=== PATIENT | female | born 1980 | race Caucasian/White ===

== ENCOUNTER 2023-01-12 10:18 | Outpatient (CLI) | payer OTHER, SELFPAY ==
--- NOTE | ~2023-01-12 | MM_ITS ---
EXAMINATION: MM stereotactic bx LT, MM post biopsy diagnostic LT, MM stereotactic specimen LT, Specim en Radiograph, Tissue Marker Clip Placement, Unilateral Mammogram DATE: 01/12/2023 13:06 (accession [id number]), 01/12/2023 13:07 (accession [id number]), 01/12 13:06 (accession [id number]) INDICATION: Abnormal mammogram: Indeterminate grouped microcalcifications in the posterior upper oute r left breast. TECHNIQUE AND FINDINGS: The risks and potential benefits of the procedure were discussed with the patient and written informe d consent was obtained. Timeout procedure was performed. The patient was placed in the prone position on the dedicated stereotactic table with the left breast in craniocaudal compression, and the area o f interest was localized and targeted utilizing digital imaging with stereotaxis. After sterile preparation of the skin, 1% lidocaine was utilized for local anesthesia at the skin pun cture site and 1% lidocaine with epinephrine was utilized for deeper local anesthesia/is about the bi opsy site. A 9G IActionable vacuum assisted biopsy needle was advanced to the level of the calcification o f interest from a cephalad approach utilizing stereotactic guidance and a total of 12 tissue core bio psies were obtained. A specimen radiograph demonstrates that the calcifications of interest are included within the tissue cores. A tissue marker clip was then placed at the biopsy site. A digital mammographic exposure co nfirmed the successful deployment of the biopsy marker. The needle was removed and hemostasis was ac hieved. A sterile bandage was applied. The patient tolerated the procedure well and there is no clementine dence of significant immediate complication. The patient was given verbal as well as written postpro cedural instructions prior to discharge from the department. Tissue cores were submitted to surgical pathology for histologic analysis. A 2-view right unilateral digital mammogram was obtained post procedure, demonstrating the tissue mar ker clip in expected position and partially complete removal of the microcalcifications of concern in the posterior upper outer left breast. IMPRESSION: 1. Successful stereotactic biopsy of posterior upper outer quadrant left breast microcalcifications , followed by tissue marker clip placement. Please refer to pathology report for histologic analysis . Reviewed, dictated and finalized at [facility]. Reviewed, dictated and finalized at location [facility]. IMPRESSION: 1. Successful stereotactic biopsy of posterior upper outer quadrant left april st microcalcifications, followed by tissue marker clip placement. Please refer to pathology report for histologic analysis. IMPRESSION: 1. Successful stereotactic biopsy of posterior upper outer quadrant left april st microcalcifications, followed by tissue marker clip placement. Please refer to pathology report for histologic analysis.
== END 2023-01-12 10:19 | disposition home or self-care (01) ==
PROVIDERS: PCP Emergency Medicine; Visit Provider Surgery
DX: R92.0 Mammographic microcalcification found on diagnostic imaging of breast (principal); N60.12 Diffuse cystic mastopathy of left breast
CPT/HCPCS: 19081; 77065; 88305; A4648

== ENCOUNTER 2023-07-08 20:06 | Emergency (ER) | payer OTHER, SELFPAY ==
--- NOTE | ~2023-07-08 | XR_ITS ---
XR foot LT min 3V 07/08/2023 20:50 INDICATION: Left foot pain after trauma PROCEDURE: 3 views left foot COMPARISON: 12/12/2012 FINDINGS: Fracture, dislocation or subluxation is not identified. The soft tissues appear within norm al limits. No foreign bodies are identified. IMPRESSION: 1: NO ACUTE BONE OR JOINT ABNORMALITY IDENTIFIED. Reviewed, dictated and finalized at location [facility]. ATOR
[2023-07-08 20:13] VITALS: BP 127/84; PULSE 90; RESP 14; TEMP 37.1; O2SAT 99
[2023-07-08 23:41] VITALS: BP 135/93; PULSE 80; RESP 16; O2SAT 100
--- NOTE | 2023-07-09 00:08 | ED.LOWEXIN ---
HPI - Extremity Injury (Lower) General Chief Complaint: Extremity Injury, Lower Stated Complaint: foot pain Time Seen by Provider: 07/08/23 23:39 Source: patient Mode of arrival: ambulatory Limitations: no limitations History of Present Illness HPI Narrative: This is a 43-year-old female that presents to the emergency department after an injury today with left foot pain. Reports dropping a slab of granite on her foot. Reports bruising and pain to the area. Denies decreased range of motion or numbness. Related Data Home Medications Medication Instructions Recorded Confirmed golimumab 50 mg/0.5 mL 50 mg subcut MONTHLY 01/24/23 subcutaneous syringe (Simponi) Allergies Allergy/AdvReac Type Severity Reaction Status Date / Time sulfasalazine Allergy Unknown Other Verified 01/24/23 09:14 Review of Systems Review of Systems: CONSTITUTIONAL: Denies fever MUSCULOSKELETAL: Reports joint pain, and myalgia. NEUROLOGIC: Denies numbness All systems reviewed & are unremarkable except as noted in HPI and below PMFSH Past Medical History Medical History (Updated 07/09/23 @ 00:09 by Rand Stearns PA-C) Rheumatoid arthritis Surgical History Surgical History (Updated 01/24/23 @ 09:14 by Di Turner) S/P breast biopsy stereotactic bx left 01/12/23 Family History Family History Father Patient's father is , Onset Age: 63 Social History Social History Smoking status: Never smoker Alcohol intake: never Exam Narrative: GENERAL: Well-appearing, well-nourished, and in no acute distress. HEAD: Normocephalic, atraumatic. EYES: EOMI. EXTREMITIES: Normal range of motion. Mild edema and bruising to the left foot dorsal surface. No obvious deformity. Normal DP pulse. Normal sensation SKIN: Warm, dry, no rash. NEURO: No focal deficits. Alert and oriented x3. PSYCH: Normal mood and affect Course Course Emergency Course: patient updated on workup and agrees with plan of care Vital Signs Vital signs: Vital Signs Temperature 98.8 F 07/08/23 20:13 Pulse Rate 90 07/08/23 20:13 Respiratory Rate 14 07/08/23 20:13 Blood Pressure 127/84 07/08/23 20:13 Pulse Oximetry 99 07/08/23 20:13 Oxygen Delivery Room Air 07/08/23 20:13 Temperature 98.8 F 07/08/23 20:13 Pulse Rate 80 07/08/23 23:41 Respiratory Rate 16 07/08/23 23:41 Blood Pressure 135/93 H 07/08/23 23:41 Pulse Oximetry 100 07/08/23 23:41 Oxygen Delivery Room Air 07/08/23 20:13 MDM - Extremity Injury (Lower) MDM Narrative Medical decision making narrative: Patient presents to the emergency department after an injury today with left foot pain. Reports strep being a slab of granite on her foot. Patient is neurovascularly intact. Left foot x-ray without acute osseous abnormalities. Patient updated on her workup. Offered a postop shoe and crutches. She declines at this time. Instructed to rest, ice and take cyth-fxv-qvydkon pain medication as needed. She is to follow up with primary provider. She was given warnings to return to the ER Differential Diagnosis Differential diagnosis: Likely other (foot fracture, foot contusion) Imaging Data Radiologist's impression: ITS Impressions Foot X-Ray 07/08/23 20:55 IMPRESSION: 1: NO ACUTE BONE OR JOINT ABNORMALITY IDENTIFIED. Critical Care Time Critical Care Time Critical Care Time: No Discharge Plan Discharge Clinical Impression: Contusion of foot, left Qualifiers: Encounter type: initial encounter Qualified Code(s): S90.32XA - Contusion of left foot, initial encounter Patient Disposition: Home, Self-Care Condition: Stable Instructions: Contusion in Adults (ED) Additional Instructions: Return to the ER if you experience fever, redness and swelling of your extremity, numbness or any
== END 2023-07-09 00:16 | disposition home or self-care (01) ==
PROVIDERS: Emergency Provider Physician Assistant
DX: S90.32XA Contusion of left foot, initial encounter (principal); W20.8XXA Other cause of strike by thrown, projected or falling object, initial encounter
CPT/HCPCS: 73630; 99283

== ENCOUNTER 2024-08-13 09:54 | Outpatient (CLI) | payer OTHER, SELFPAY ==
--- NOTE | ~2024-08-13 | MM_ITS ---
EXAMINATION: MM screening [facility] BI w florin HISTORY: Screening TECHNIQUE: Craniocaudal and mediolateral oblique 3-D tomosynthesis images were obtained and synthetic 2-D images were generated. CAD analysis was submitted and interpreted. COMPARISON: Comparison to multiple prior studies sequentially, with oldest reviewed study dated 08/27. BREAST PARENCHYMAL COMPOSITION: Not dense: There are scattered areas of fibroglandular density. FINDINGS: Interval resection of left breast calcifications with residual tissue marker at this locati on in the upper outer quadrant of the left breast. There is no evidence of suspicious mass, calcifica tion, or architectural distortion to suggest malignancy in either breast. There has been no suspiciou s interval change. IMPRESSION: 1. No mammographic evidence of malignancy. 2. Recommend routine screening mammography in one year. BI-RADS Category 2: Benign finding(s). Reviewed, dictated and finalized at location A. GE MECHANIC
--- OUTSIDE RECORDS SUMMARY | 2024-08-13 10:38 | XMS_ITS | Referral Summary ---
Author Organization [facility] [address] Address [address] [place] [id number] Care Team Providers Care Field Handyman Name Role Phone Hilary Smith MD Primary Care Provider Bailey Kay MD Unavailable [phone] Nghia Lucas MD Unavailable [phone] Allergies Active Allergy Reactions Criticality Noted Date Comments Sulfa (Sulfonamide Antibiotics) Hives,Rash Medium 05/10/2017 Sulfasalazine Hives,Rash Medium 01/03/2022 Tolerate most nsaids Medications nabumetone (RELAFEN) 500 mg tablet Take by mouth 2 (two) times a day as needed 07/08/20 21 Active ondansetron ODT (ZOFRAN-ODT) 4 mg disintegrating tablet Take 1 tablet (4 mg total) by mouth every 8 (eight) hours as needed for nausea or vomiting 20 tablet 01/03/20 23 Active Additional Information Patient not taking.Reported on 07/12/2023 valACYclovir (VALTREX) 1 gram tablet Take 2 tabs (2000 mg) 2 times a days for total of 1 day. Take at onset of cold sore 4 tablet 5 05/19/20 23 Active Additional Information Patient not taking.Reported on 07/12/2023 Active Problems Problem Noted Date Diagnosed Date Pure hypercholesterolemia 12/12/2023 Overview (12/12/2023): Mild on prior labs. ASCVD risk is not elevated. Continue working on diet and lifestyle Microcalcifications of the breast 11/22/2022 Assessment & Plan (12/12/2023 1:47 PM CDT): Patient had breast biopsy on this last year after the failed biopsy attempt at [facility]. She reports it came back benign. She is due for her annual diagnostic mammogram. We will provide order that she can take to [facility] as she wishes to continue any additional screening through them as she was not happy with the staff at [facility] who attempted the 1st biopsy Abnormal mammogram 11/22/2022 Seronegative rheumatoid arthritis ([facility]/HCC) 12/16 Assessment & Plan (12/12/2023 1:46 PM CDT): Chronic. Patient reports this is in remission. She will continue working with Rheumatology. We will check inflammatory markers with our labs and routine rheumatology. Continue p.r.n. nonsteroidal anti-inflammatory Routine physical examination 01/03/2022 Immunizations Name Administration Dates Next Due Influenza, Quadrivalent, Spl it, Intramuscular 04/14/2016 Influenza, Quadrivalent, Spl it, Preservative Free, Intramuscular 04/08/2023,04/28/2022,05/11/2020,06/09,04/05/2018,04/20/2017 Influenza, Trivalent, IM (MDV) 05/22/2015,2012 Influenza, Unspecified 07/17/2023(Deferr ed: Patient Refused),07/17/2022(Deferred: Patient Refused) MMR 09/23/2019 Tdap 09/23/2019 Social History Tobacco Use Types Packs/Day Years Used Date Smoking Tobacco: Never Smokeless Tobacco: Never AUDIT-C Answer Date Recorded Q1: How often do you have a drink containing alc ohol? 2-4 times a month 01/03/2022 Q2: How many drinks containi ng alcohol do you have on a typical day when you are drinking? 1 or 2 01/03/2022 Q3: How often do you have si x or more drinks on one occasion? Never 01/03/2022 PHQ-2 Answer Date Recorded PHQ-2 Total Score (If total score is 3 or more points, staff should administer the PHQ-9) 0 12/12/2023 Personal Safety Answer Date Recorded Getting School Help Needed Not on file 06/28 Comments No Sex and Gender Information Value Date Recorded Sex Assigned at Not on file Legal Sex Female 4:55 PM CRATE TIER Gender Identity Female 07/23/2021 12:25 PM CRATE TIER Sexual Orientation Straight 07/23/2021 12 :25 PM CRATE TIER Last Filed Vital Signs Vital Sign Reading Time Taken Comments Blood Pressure 125/86 12/12/2023 8:24 AM CDT Pulse 81 12/12/2023 8:24 AM CDT Temperature 36.9 ??C (98.4 ??F) 01/02/2023 12:32 PM C DT Respiratory Rate 16 01/02/2023 12:32 PM CDT Oxygen Saturation 98% 01/02/2023 12:32 PM CDT Inhaled Oxygen Concentration - - Weight 76.8 kg (169 lb 6.4 oz) 12/12/2023 8:24 A M CDT Height 167 cm (5' 5.75 ) 12/12/2023 8:24 AM CDT Body Mass Index 27.55 12/12/2023 8:24 AM CDT Plan of Treatment Not on file Procedures Procedure Name Priority Date/Time Associated Diagnosis Comments HEPATITIS C ANTIBODY Routine 01/15/2024 8:51 AM CDT Seronegative rheumatoid arthritis (CMS/HCC) (HCC) SCREENING MAMMOGRAM BILATERAL W JNENIFER Schedule Routine, Read Routine (OP Routine) 08/27/2022 9:39 AM CRATE TIER Screening mammogram, encounter for from Last 3 Months or Most Recently Relevant to Health Maintenance Results * Hepatitis C antibody Blood Blood, Venous (01/15/2024 8:51 AM CDT) Hep C Ab Nonreactive Nonreactive Comment: Interpretive Data Nonreactive: Antibodies to HCV not detected. Does NOT exclude the possibility of recent exposure to HCV. Equivocal: Equivocal for HCV antibodies. Supplemental molecular testing will be automatically performed to determine infection status in accordance with current CDC screening recommendations. ?? Reactive: Positive for HCV antibodies. ??This may represent current or past HCV infection. Supplemental molecular testing will be automatically performed to determine ??current infection status in accordance with current CDC screening recommendations. Interpretive data was last revised on 2019. Blood (Blood, Venous) 01/15/2024 8:51 AM CDT 01/15/2024 4:19 PM CDT Narrative [facility] MORTON - 01/15/2024 6:58 PM CDT Fax rsults to Dr Nghia Lucas [phone] Nghia Lucas MD LAB MICROBIOLOGY - GENERAL ORDERABLES Final Result [facility] MORT[facility] [id number] Department of Laboratories [place] [phone] * (ABNORMAL) Screening Mammogram Bilateral W Jennifer (08/27/2022 9:39 AM CRATE TIER) Anatomical Region Laterality Modality Breast Bilateral Mammography 08/29/2022 7:45 AM CRATE TIER Impressions 08/29/2022 7:45 AM CRATE TIER 1. ??Indeterminate group of microcalcifications in the upper outer left breast at posterior depth. ??Further evaluation with left diagnostic mammogram is recommended. 2. ??No suspicious findings in the right breast. ??Annual screening mammography of the right breast is recommended in 12 months. BI-RADS: 0 - Additional imaging evaluation is necessary. The patient has been or will be contacted. Electronically signed by: JOSÉ LUIS Ambrocio 08/29/2022 7:45 AM CRATE TIER EXAMINATION: SCREENING MAMMOGRAM BILATERAL W JENNIFER ORDERING HEALTHCARE PROVIDER: SELF SCREENING MAMMOGRAM HISTORY: Routine screening mammography. COMPARISON: ??This is patient's baseline mammogram. TECHNIQUE: CC and MLO views of both breasts were obtained with digital technique using digital breast tomosynthesis with C view. Computer aided detection was utilized. FINDINGS: DENSITY: The breasts have scattered areas of fibroglandular density. BREASTS: There is an indeterminate group of microcalcifications in the upper outer left breast at posterior depth. ??Other scattered microcalcifications in both breasts have benign appearance. ??No other suspicious findings identified in either breast. Self Screening Mammogram IMG MAMMO PROCEDURES Fi nal Result from Last 3 Months or Most Recently Relevant to Health Maintenance Insurance [id number] [place] [id number] [place] [address] Care Teams Field Handyman Relationship Specialty Start Date End Date Hilary Smith MD PCP - General Family Practice 12/29/21 Bailey Kay MD [address] [address] Referring Physician Gynecology 01/03/22 Nghia Lucas MD [address] [place] [id number] Rheumatology 12/05/22
--- OUTSIDE RECORDS SUMMARY | 2024-08-13 10:38 | XMS_ITS | Data Portability ---
Author Organization [facility], [address] ([place]) Address [address] [address] Care Team Providers Care Long Term Care Administrator Name Role Phone CHACE VELAZQUEZ Primary Care Provider [phone] Assessment Encounter Date Assessment Date Assessment LastModified by Organization Details LastModified Time 01/04/2024 01/04/2024 IMPRESSION: 1. Seronegative RA? No active synovitis today on exam despite the patient having been off SYMPONI for over a month. 2. Osteoarthritis of the right thumb and bilateral knees. PLAN: 1. Restart nabumetone 500 mg p.o. b.i.d. with food. The indications, risks, benefits and potential side effects of this NSAID medication are reviewed with the patient today in detail. 2. We will call the patient in 1 week for an update on how she is doing. 3. Followup visit in 3 months for recheck. nv Not available 01/05/2024 10:51:09 04/22/2024 04/22/2024 IMPRESSION: 1. 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 2. Osteoarthritis. PLAN: 1. Labs today, including a CBC, CMP and acute phase reactants, as well as quantitative rheumatoid factor and CCP antibody. 2. Discontinue Orencia. 3. Retrial of Enbrel 50 mg subcutaneously once weekly dosing. 4. Discontinue nabumetone. 5. Etodolac 400 mg p.o. b.i.d. with food. 6. Followup visit in 3 months. franklyn Not available 04/22/2024 20:07:07 08/05/2024 08/05/2024 IMPRESSION: 1. Acne rosacea. 2. Seronegative RA. 3. Osteoarthritis of the knees, mild. PLAN: 1. Doxycycline 100 mg p.o. b.i.d. x10 days. 2. Continue current Enbrel and etodolac dosing. 3. We will call the patient in 10 days for an update on how she is doing with her rash. 4. Consider referral to Dermatology. 5. Followup visit in 6 months or sooner if necessary. franklyn Not available 08/05/2024 12:50:27 Plan of Treatment Reminders Order Date Submit Date Provider Last Modified By Organization Details Last Modified Time Details Appointments None recorded. Lab CBC 2023 [facility], [address] [place] [address], [id number], 10:49:30 CMP, serum or plasma 2023 [facility], [address] [place] [address], [id number], 11:09:42 ESR (erythrocyt e sedimentati on rate), blood 2023 [facility], [address] [place] [address], [id number], 11:43:20 C-reactive protein, quantitativ e, serum or plasma 2023 [facility], [address] [place] [address], [id number], 11:09:44 ccp (cyclic citrullinat ed peptide) igg, serum 2023 [facility], [address] [place] [address], [id number], 11:35:50 rf (rheumatoid factor), serum 2023 [facility], [address] [place] [address], [id number], 11:09:46 Referral None recorded. Procedures None recorded. Surgeries None recorded. Imaging None recorded. Medication Orders nabumetone 500 mg tablet 2023 024 [facility][id number], [address] [place], [address], 16:59:05 Patient TargetsNo targets recorded. Patient Instructions Encounter Date Encounter Id Patient Instructions Last Modified By Organization Details Last Modified Time 01/04/2024 [id number] patient follow u p phone call* - get update since 01/03 appt [email or web address] Not available 01/11/2024 09:04:27 Reason for Referral None Reported. Results Created Date Observation Date Name Description Value Unit Range Abnormal Flag Note LastModifiedBy Organization Detail LastModifiedTime 04/22/2004/23/2024 CBC CBC Not Available [facility] [address] [place] [address], [id number], 04/23/2024 10:49:30 04/22/20 24 04/23/2024 CBC WBC 11.7 K/uL 3.8-11 .2 high Not Available [facility] [address] [place] [address], [id number], 04/23/2024 10:49:30 04/22/20 24 04/23/2024 CBC RBC 4.87 M/uL 3.92-5 .10 Not Available [facility] [address] [place] [address], [id number], 04/23/2024 10:49:30 04/22/20 24 04/23/2024 CBC HGB 14.3 g/dL 11.8-1 5.3 Not Available [facility] [address] [place] [address], [id number], 04/23/2024 10:49:30 04/22/20 24 04/23/2024 CBC HCT 43.2 % 36.5-4 4.8 Not Available [facility] [address] [place] [address], [id number], 04/23/2024 10:49:30 04/22/2004/23/2024 CBC MCV 88.7 fL 80.0-9 9.0 Not Available [facility] [address] [place] [address], [id number], 04/23/2024 10:49:30 04/22/2004/23/2024 CBC MCH 29.4 pg 25.5-3 3.6 Not Available [facility] [address] [place] [address], [id number], 04/23/2024 10:49:30 04/22/2004/23/2024 CBC MCHC 33.1 g/dL 32.0-3 6.0 Not Available [facility] [address] [place] [address], [id number], 04/23/2024 10:49:30 04/22/2004/23/2024 CBC RDW-SD 40.3 fL 35.1 - 46.3 Not Available [facility] [address] [place] [address], [id number], 04/23/2024 10:49:30 04/22/2004/23/2024 CBC plt 331 K/uL 130-40 0 Not Available [facility] [address] [place] [address], [id number], 04/23/2024 10:49:30 04/22/2004/23/2024 CBC MPV 10.5 fL 9.3-12 .8 Not Available [facility] [address] [place] [address], [id number], 04/23/2024 10:49:30 04/22/2004/23/2024 CMP, serum or plasm a comp. met. panel Not Available [facility] [address] [place] [address], [id number], 04/23/2024 11:09:42 04/22/2004/23/2024 CMP, serum or plasm a sodium 137 mmol/ L 136-14 6 Not Available [facility] [address] [place] [address], [id number], 04/23/2024 11:09:42 04/22/2004/23/2024 CMP, serum or plasm a potassium 3.9 mmol/ L 3.5-5. 1 Not Available [facility] [address] [place] [address], [id number], 04/23/2024 11:09:42 04/22/2004/23/2024 CMP, serum or plasm a chloride 104 mmol/ L 98-110 Not Available [facility] [address] [place] [address], [id number], 04/23/2024 11:09:42 04/22/2004/23/2024 CMP, serum or plasm a CO2 28 mEq/L 20-32 Not Available [facility] [address] [place] [address], [id number], 04/23/2024 11:09:42 04/22/2004/23/2024 CMP, serum or plasm a anion gap 9 mmol/ L 10-22 low Not Available [facility] [address] [place] [address], [id number], 04/23/2024 11:09:42 04/22/2004/23/2024 CMP, serum or plasm a glucose 97 mg/dL 70-100 Not Available [facility] [address] [place] [address], [id number], 04/23/2024 11:09:42 04/22/2004/23/2024 CMP, serum or plasm a calcium 9.7 mg/dL 8.4-10 .4 Not Available [facility] [address] [place] [address], 784[address], 04/23/2024 11:09:42 04/22/2004/23/2024 CMP, serum or plasm a total protein 7.1 g/dL 6.4-8. 3 Not Available [facility] [address] [place] [address], [id number], 04/23/2024 11:09:42 04/22/2004/23/2024 CMP, serum or plasm a albumin 4.7 g/dL 3.5-5. 3 Not Available [facility] [address] [place] [address], [address], 04/23/2024 11:09:42 04/22/2004/23/2024 CMP, serum or plasm a ALP 94 U/L 44 - 127 Not Available [facility] [address] [place] [address], [id number], 04/23/2024 11:09:42 04/22/2004/23/2024 CMP, serum or plasm a AST (SGOT) 19 U/L 10-40 Not Available [facility] [address] [place] [address], [id number], 04/23/2024 11:09:42 04/22/2004/23/2024 CMP, serum or plasm a total bilirubin 0.3 mg/dL 0.2-1. 0 Not Available [facility] [address] [place] [address], [id number], 04/23/2024 11:09:42 04/22/2004/23/2024 CMP, serum or plasm a ALT (SGPT) 20 U/L 8-35 Not Available [facility] [address] [place] [address], [id number], 04/23/2024 11:09:42 04/22/2004/23/2024 CMP, serum or plasm a BUN 12 mg/dL 7-21 Not Available [facility] [address] [place] [address], [id number], 04/23/2024 11:09:42 10/07/20 24 04/23/2024 CMP, serum or plasm a creatinine 0.7 mg/dL 0.7-1. 3 Not Available [facility] [address] [place] [address], [id number], 04/23/2024 11:09:42 04/22/20 24 04/23/2024 CMP, serum or plasm a GFR(non-afri can slovenian) 97 Not Available [facility] [address] [place] [address], [id number], 04/23/2024 11:09:42 04/22/2004/23/2024 CMP, serum or plasm a GFR() 117 (FURNACE COMBUSTION TESTER EDUAR KIDNE Y DISEA SE HAS A GFR LESS THAN 60 ML/AL N/1.7 3 MM FOR A PERIO D OF THREE MONTH S OR MORE. ) Not Available [facility] [address] [place] [address], [id number], 04/23/2024 11:09:42 04/22/2004/23/2024 C-marychuy ctive prote in, quant itati ve, serum or plasm a CRP high Not Available [facility] [address] [place] [address], 6[address], 04/23/2024 11:09:44 04/22/2004/23/2024 C-marychuy ctive prote in, quant itati ve, serum or plasm a CRP 1.8 mg/dL <0.4-0 .5 high Not Available [facility] [address] [place] [address], [id number], 04/23/2024 11:09:44 04/22/2004/23/2024 rf (rheu matoi d facto r), serum rf automated Not Available [facility] [address] [place] [address], [id number], 04/23/2024 11:09:46 04/22/2004/23/2024 rf (rheu matoi d facto r), serum rf 6 IU/mL <3.5-1 4 Not Available [facility] [address] [place] [address], [id number], 04/23/2024 11:09:46 04/22/2004/23/2024 ccp (cycl ic citru llina cyn pepti de) igg, serum ccp antibody, IgG <0.54 U/mL <=4.9 Not Available [facility] [address] [place] [address], [id number], 04/23/2024 11:35:50 04/22/2004/23/2024 ESR (eryt hrocy te sedim entat ion rate) , blood sed rate 24 mm/HR 0 - 20 high Not Available [facility] [address] [place] [address], [id number], 04/23/2024 11:43:20 Result Notes None recorded. Problems Name Problem SNOMED Code Status Onset Date Resolution Date Notes Provider Name and Address Organization Details Recorded Time Rosacea, papular type 01479323 Active 2024 Nghia Lucas MD [address] [place] [address], [phone], [facility] 5 11:06:55 Primary gonarthrosis, bilateral 330114787 Active 2024 Nghia Lucas MD [address] [place] [address], [phone], [facility] 5 11:07:26 Osteoarthritis 923165201 Active 2023 Paty Munoz null, [facility] 4 13:11:19 Seronegative rheumatoid arthritis 861521216 Active 2023 Samantha Barker null, [facility] 4 15:51:42 Problem Notes None recorded. Procedures Surgical History Date Name Laterality Status Provider Name and Address Organization Details Recorded Time delivery completed Not Available Health Note 03/29/2024 10:37:20 Imaging Results None recorded. Procedure Notes None recorded. Medical Equipment None Reported. Allergies Allergen ID Allergen Name Allergen Category Reaction Reaction Severity Criticality Documentation Date Start Date Code Code System Note Provider Name and Address Organization Details Recorded Time [id number] sulfasala zine medicatio n rash Not available Not available 08/14/20232015 9524 RxNorm React ion: Rash; Itchi ng; Swell ing; Not Available Not Available Not Available [id number] Dairy medicatio n swelling Not available Not available 08/14/20232015 17090 UNK React ion: Swell ing; Comme nt: Dairy ; Not Available Not Available Not Available Medications Name Sig Start Date Stop Date Status Note LastModified by Organization Details LastModified Time valacyclo vir 1 gram tablet TAKE 2 TABLETS BY MOUTH TWICE DAILY FOR 1 DAY AT ONSET OF COLD SORE 04/22 completed Not Available Not Available Not Available prednison e 5 mg tablet TAKE 3 TABLETS BY [facility] DAILY X10 DAYS, 2 TABLETS DAILY X14 DAYS, 1 TABLET DAILY FOR 14 DAYS. OFF. active Not Available Not Available No t Available doxycycli ne monohydra te 100 mg capsule Take 1 capsule twice a day by oral route for 10 days. 2024 active Not Available Not Available Not Avai lable etodolac 400 mg tablet TAKE 1 TABLET TWICE A DAY BY ORAL ROUTE WITH MEAL(S). active Not Available Not Available No t Available lorazepam 1 mg tablet TAKE 1 TABLET BY MOUTH DAILY NEEDED FOR ANXIETY 04/22 completed Not Available Not Available Not Available ondansetr on 4 mg disintegr ating tablet TAKE 1 TABLET BY MOUTH EVERY 8 HOURS NEEDED FOR NAUSEA AND VOMITING 12/20 completed Not Available Not Available Not Available nabumeton e 500 mg tablet Take 1 tablet twice a day by oral route. 04/22 completed disconti nued at 04/22/24 appt. Not Available Not Available Not Available azithromy jovany 500 mg tablet TAKE 1 TABLET BY MOUTH EVERY DAY FOR 3 DAYS 12/20 completed Not Available Not Available Not Available Vitamin D3 25 mcg (1,000 unit) tablet Take 1 tablet every day by oral route. 04/22 completed Takes intermit tently Not Available Not Available Not Available melatonin as directed active Not Available Not Available No t Available Iron (ferrous sulfate) One gummy daily active Not Available Not Available No t Available multivita min Once daily active Not Available Not Available No t Available Enbrel SureClick 50 mg/mL (1 mL) subcutane ous pen injector INJECT 1 PEN UNDER THE SKIN EVERY 7 DAYS 2024 active Not Available Not Available Not Avai lable Simponi 50 mg/0.5 mL subcutane ous pen injector 01/03 completed Not Available Not Available Not Available Orencia ClickJect 125 mg/mL subcutane ous auto-inje ctor INJECT 1 PEN UNDER THE SKIN EVERY 7 DAYS 04/22 completed disconti nued at 04/22/24 appt. Return to Enbrel Not Available Not Available Not Available Paxlovid 300 mg (150 mg x 2)-100 mg tablets in a dose pack TAKE 2 TABLETS (NIRMATR ROSSY) AND TAKE 1 TABLET (RITONAV IR) BY MOUTH TWICE A DAY FOR 5 DAYS 12/20 completed Not Available Not Available Not Available ashwagand mead extract as directed active Not Available Not Available No t Available Vitals Date Recorded Body height Provider Name an d Address Organization Details Last Updated DateTime 01/04/2024 165.1 cm Paty [facility] 01/04/2024 10:56:05 Date Recorded Body mass index (BMI) Body weight Provider Name and Address Organization Details Last Updated DateTime 01/04/2024 29 kg/m2 97378.07 g Paty [facility] 01/04/2024 10:56:07 Date Recorded Heart rate Provider Name an d Address Organization Details Last Updated DateTime 01/04/2024 83 /min Paty [facility] 01/04/2024 10:56:15 Date Recorded Oxygen saturation Oxygen saturation in Arterial blood by Pulse oximetry Provider Name and Address Organization Details Last Updated DateTime 01/04/2024 99 % 99 % Paty [facility] 01/04/2024 10:56:17 Date Recorded Pain severity - 0-10 verbal numeric rating [Score] - Reported Provider Name and Address Organization Details Last Updated DateTime 01/04/2024 3 Paty Munoz [facility] 01/04/2024 10:56:19 Date Recorded Body height Provider Name an d Address Organization Details Last Updated DateTime 04/22/2024 165.1 cm Lani Valenzuela [facility] 04/22/2024 16:02:35 Date Recorded Body mass index (BMI) Body weight Provider Name and Address Organization Details Last Updated DateTime 04/22/2024 30.3 kg/m2 57157.53 g Lani Valenzuela [facility] 04/22/2024 16:02:44 Date Recorded Heart rate Provider Name an d Address Organization Details Last Updated DateTime 04/22/2024 96 /min Lani Frnaty [facility] 04/22/2024 16:02:59 Date Recorded Oxygen saturation Oxygen saturation in Arterial blood by Pulse oximetry Provider Name and Address Organization Details Last Updated DateTime 04/22/2024 97 % 97 % Lani naty [facility] 04/22/2024 16:03:03 Date Recorded Pain severity - 0-10 verbal numeric rating [Score] - Reported Provider Name and Address Organization Details Last Updated DateTime 04/22/2024 3 Lani Valenzuela [facility] 04/22/2024 16:03:09 Date Recorded Body height Provider Name an d Address Organization Details Last Updated DateTime 08/05/2024 165.1 cm Anastasia Alcantar [facility] 08/05/2024 10:25:54 Date Recorded Heart rate Provider Name an d Address Organization Details Last Updated DateTime 08/05/2024 83 /min Anastasia Alcantar [facility] 08/05/2024 10:26:04 Date Recorded Oxygen saturation Oxygen saturation in Arterial blood by Pulse oximetry Provider Name and Address Organization Details Last Updated DateTime 08/05/2024 98 % 98 % Anastasiakaylah Alcantar [facility] 08/05/2024 10:26:08 Date Recorded Systolic blood pressure Diastolic blood pressure Provider Name and Address Organization Details Last Updated DateTime 01/04/2024 126 mm[Hg] 88 mm[Hg] Paty Alexander [facility] 01/04/2024 10:56:12 Date Recorded Systolic blood pressure Diastolic blood pressure Provider Name and Address Organization Details Last Updated DateTime 04/22/2024 124 mm[Hg] 82 mm[Hg] Lani Valenzuela [facility] 04/22/2024 16:02:55 Date Recorded Systolic blood pressure Diastolic blood pressure Provider Name and Address Organization Details Last Updated DateTime 08/05/2024 128 mm[Hg] 80 mm[Hg] Anastasia Alcantar [facility] 08/05/2024 10:26:01 Social History Question Answer Notes LastModified by Doctor kinetic ion Details LastModified Time Tobacco Smoking Status Never Smoker Not Available Health Note 03/29/2024 10:37:20 Do You Have An Advance Directive? No [email or web address] Information not available 03/29/2024 What Is Your Level Of Alcohol Consumption? Occasional [email or web address] Information not available 03/29/2024 How Many Times Per Week Do You Consume Alcohol? Less Than 1 Time Per Week [email or web address] Information not available 03/29/2024 What Is Your Level Of Caffeine Consumption? Moderate [email or web address] Information not available 03/29/2024 Are You Currently Employed? 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 1-2 Times Per Week [email or web address] Information not available 03/29/2024 Do You Have A Medical Power Of Toy Electric Train Repairer? No [email or web address] Information not available 03/29/2024 What Was The Date Of Your Most Recent Tobacco Screening? 04/05/2024 [email or web address] Information not available 03/29/2024 What Is Your Relationship Status? [email or web address] Information not available 03/29/2024 Do You Use Any Illicit Or Recreational Drugs? No [email or web address] Information not available 03/29/2024 Sex: Unknown Functional Status Question Answer Note LastModified by [employer] ion Details LastModified Time What is your exercise level? Occasional [email or web address] Information not available 03/29/2024 Mental Status None recorded. Family History Relationship Description Onset Age of this Age Resolved Age Notes LastModified by Organization Details LastModified Time Maternal Grandmother Family history of malignant neoplasm [email or web address] Not available 2023 10:37:19 Paternal Grandmother Family history of malignant neoplasm [email or web address] Not available 2023 10:37:19 Medical History Condition Response Anxiety Disorder N Diabetes N Attention-deficit Hyperactivity Disorder N Bleeding Disorder N High Blood Pressure N Arthritis Y Hyperlipidemia N Cancer N Stroke N Thyroid Problems N Asthma N Depression N COPD N Anemia N Seizures N Heart Disease N Fibromyalgia N Osteoporosis N Kidney Disease N Gynecological HistoryNo gynecological history recorded. Obstetrics History GPAL:G 0 P 0 0 0 0 Past Encounters Encounter ID Performer Location Encounter Start Date Encounter Closed Date Diagnosis/Indication Diagnosis SNOMED-CT Code Diagnosis ICD10 Code Diagnosis Note [id number] Nghia Lucas MD [address] [facility] [place] ([place]) [address] [place] [phone] 01/04/2024 10:48:33 01/05/2024 18:15:27 Osteoarthritis 619752210 M19.90 Bilateral osteoarthritis of knees 7876185435 57757 M17.0 Rheumatoid arthritis of multiple joints 765103598 M06.89 Osteoarthr itis of finger joint of right hand 0962372162 4327611 M19.041 Osteoarthr itis of knee 740583023 M17.0 Long-term drug therapy 219623501 Z79.331 [id number] Nghia Lucas MD [address] [facility] [place] ([place]) [address] [place] [phone] 04/22/2024 15:43:09 04/22/2024 18:30:15 Seronegative rheumatoid arthritis 542845844 M06.00 Osteoarthritis 559645420 M19.90 [id number] Nghia Lucas MD [address] [facility] ([place]) [address] [place] [phone] 08/05/2024 10:19:32 08/06/2024 18:27:30 Rosacea, papular type 65314311 L71.8 Seronegati ve rheumatoid arthritis 273818041 M06.00 Primary go narthrosis, bilateral 717679876 M17.0 Health Concerns Section Related Observation LastModified by Organization Detai ls LastModified Time None Recorded Concern Status LastModified by Organization Details LastModified Time None Recorded Advance Directives Directive N: Payers Encounter Date Sequence Insurance Name Policy Number Policy Trammell Covered Member ID Trammell Member ID Guarantor Name 01/04/2024 1 [employer] - CHOICE (POS II) [id number] Jewcarmelo Kochan [id number] Jewel Kochan 04/22/2024 1 [employer] - CHOICE (POS II) [id number] Jewcarmelo Kochan [id number] Jewel Kochan 08/05/2024 1 [employer] - CHOICE (POS II) [id number] Jewcarmelo Kochan [id number] Jewcarmelo Kochjoss Notes Date Note Type Note Provider Name and Address Organization Details Recorded Time 01/04/2024 text/html The patient is a 43-year-old female with presumptive seronegative RA and osteoarthritis, who is here today for a followup visit. She has been somewhat noncompliant with her followup visits and, in fact, ran out of her nabumetone and SYMPONI therapy. She reports that she has been encountering some increased aching in her right thumb at the MCP and DIP joint. Her right knee and ankles and feet have been more achy and stiff. She rates the pain a 3/10 on a scale. Currently, her morning stiffness is lasting up to a half hour in duration. She is right-handed and keeps active on her feet, performing all of her own ADLs. She has had no Raynaud? s symptoms, aphthous ulcers, cough, pleurisy, shortness of breath, chest pain or palpitations. No GERD, melena or hematochezia, diarrhea or constipation. She had been tolerating her medications well. Since being off them, she can tell a definite upswing in her joint symptoms, but does not describe true synovitis symptoms. She did undergo labs on 12/14/2023, demonstrating a normal CMP, with a serum creatinine of 0.83 with an estimated GFR of 90 cc/minute per 1.73 m2, with normal LFTs. Her serum C-reactive protein was normal at 0.7 with a Westergren sed rate of 20 and a normal CBC and TSH screen, as well as hepatitis C screen. These were performed with her primary care provider. 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 She has not missed any days of work as a result of her arthritis.kenisha Lucas MD [address] [place] [address], [phone], [facility] 01/07/2024 23:04:37 04/22/2024 text/html The patient is a 44-year-old female with seronegative RA and osteoarthritis, who is here for a 4 month followup visit. She reports that the switch from SIMPONI to Orencia therapy has led to a flare of her arthritis. She does not feel as though the Orencia nor the Relafen is providing much in the way of relief. She encounters morning stiffness lasting up to 1 hour in duration. She rates her pain today a 3/10 on a scale, but reports she cannot tolerate standing more than 15 minutes without sitting to rest and elevate her legs. Her knees have been swelling and occasionally threaten to give way. She does have ? g ood days and bad days,? but in general on a daily basis encounters some degree of discomfort and stiffness in the knees. She currently does not utilize and assistive device for ambulation nor braces. 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 She has a physical job that demands constant activity on her feet. She does try to accommodate her limitations as much as she can. She reports some fatigue. She complains her knees always feel ? t hick.? She denies any fever or chills. No skin rash, Raynaud? s symptoms, aphthous ulcers, sinus complaints, neck swelling, lymph node swelling, cough or pleurisy, shortness of breath, chest pain or palpitations, GERD, melena or hematochezia. Of note, she has gained 8 pounds of weight since her last office visit 4 months ago. She is trying to watch her caloric intake. Of note, the patient has previously failed trials of HUMIRA therapy, which she took for 6 years, but then lost its efficacy. She also tried hydroxychloroquine, methotrexate, leflunomide and sulfasalazine, all of which were of no benefit. She reports that Enbrel in the past was ? m agical,? however, she took it for a number of years and began to experience breakthrough symptoms and was switched to SIMPONI, which worked quite well, but her insurance refused to continue to cover the medication and she had to switch to Orencia.franklyn Lucas MD [address] [place] [address], [phone], [facility] 04/27/2024 12:58:12 08/05/2024 text/html The patient is A 44-year-old white female with a history of presumptive seronegative RA and osteoarthritis, who is here today for a followup visit. She reports that with the combination of Enbrel and etodolac, her knees as well as her hands, wrists and other joints are doing quite well. She rates her pain level a 1/10 on a scale. Her morning stiffness is mild, generally lasting less than a half an hour in duration. She denies any injection site reactions. Her only complaint today is a breakout of her facial rash. She has had this in the past. She states she was diagnosed with rosacea in the past. She currently does not use any topical agents or oral agents for this. She does not see Dermatology. She, in fact, is trying to establish with a new PCP. She denies any fever or chills. No aphthous ulcers, cough, pleurisy, shortness of breath, chest pain or palpitations, GERD, melena or hematochezia, diarrhea or constipation.franklyn Lucas MD [address] [place] [address], [phone], [facility] 08/06/2024 21:32:05 OBGyn Episode No OBEpisode recorded.
--- OUTSIDE RECORDS SUMMARY | 2024-08-13 10:38 | XMS_ITS | Clinical Summary ---
Author Organization [facility] Address [address] [place] [address]. [place], [place] [address] [place] [address] Care Team Providers Care Grant Administrator Name Role Phone Eduard Dumont MD Primary Care Provider Social History Tobacco Use Types Packs/Day Years Used Date Smoking Tobacco: Never Assessed Comments Unknown Sex and Gender Information Value Date Recorded Sex Assigned at Not on file Legal Sex Female 1:20 PM CDT Gender Identity Not on file Sexual Orientation Not on file Plan of Treatment Health Maintenance Due Date Last Done Comments Cervical Cancer Screening Pa p Smear (Age 30 to 64) Every 3 Years 1981 Annual Physical 02/23/1984 Hepatitis C 1999 DTaP, Tdap and Td Vaccines ( 1 - Tdap) 02/23/2000 Hepatitis B Vaccines (1 of 3 - 19+ 3-dose series) 02/23/2000 Cervical Cancer Screening Pa p with HPV Testing (Age 30 to 64) Every 5 Years 2011 Cervical Cancer Screening with HPV 2011 Mammogram Screening 2021 COVID-19 Vaccine (2023-2 5 season) 2024 Influenza Adult (#1) 2024 HPV Vaccines Aged Out No longer eligi ble based on patient's age to complete this topic Meningococcal B Vaccine Aged Out No l onger eligible based on patient's age to complete this topic Meningococcal Vaccine Aged Out No zahraa anuj eligible based on patient's age to complete this topic Pneumococcal Vaccine: Pediat rics (0 to 5 Years) and At-Risk Patients (6 to 64 Years) Aged Out No longer eligible b ased on patient's age to complete this topic RSV Immunizations Under 20 Months Aged Out No longer eligible based on patient's age to complete this topic Insurance [employer] [facility] Care Teams Grant Administrator Relationship Specialty Start Date End Date Eduard Dumont MD [address] [address] PCP - General INTERNAL MEDICINE 12/07/21
--- OUTSIDE RECORDS SUMMARY | 2024-08-13 10:38 | XMS_ITS | Clinical Summary ---
Author Organization 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 Gender Identity Not on file Sexual Orientation Not on file Plan of Treatment Health Maintenance Due Date Last Done Comments Hepatitis C Virus (HCV) Screening 1981 Hepatitis B Immunization (1 of 3 - 19+ 3-dose series) 02/23/2000 HPV/Cotest 2011 Cervical Cancer Screening (CCS) 06/23/2020 Pap Smear 06/23/2020 06/23/2017 Discussion re Starting/Frequency of Mammograms 2021 SARS-COV-2 Immunization (3 - Moderna risk series) 07/01/2021 06/03/2021, 09/29/2020, 08/19/2020 Influenza Immunization (#1) 03/17/202404/17, 06/09/2019, 04/05/2018, Additional history exists Respiratory Syncytial Virus (RSV) Immunization (Adult) (1 - 1-dose 75+ series) 02/23/2056 DTaP/Tdap/Td Immunization Discontinued 09/23/2019 TdaP Immunization Completed 09/23/2019 Meningococcal Immunization (ACWY) Aged Out No longer eligible based on patient's age to complete this topic Pneumococcal Immunization Combined Aged Out No longer eligible based on patient's age to complete this topic Rotavirus Immunization Aged Out No lo nger eligible based on patient's age to complete this topic
--- OUTSIDE RECORDS SUMMARY | 2024-08-13 10:38 | XMS_ITS | Clinical Summary ---
Author Organization [facility] [address] Address [address] [place] [id number] Care Team Providers Care Special Loan Officer Name Role Phone Hilary Smith MD Primary Care Provider Bailey Kay MD Unavailable [phone] Nghia Lucas MD Unavailable [phone] Allergies Active Allergy Reactions Criticality Noted Date [...] year after the failed biopsy attempt at [facility]. She reports it came back benign. She is due for her annual diagnostic mammogram. We will provide order that she can take to [facility] as she wishes to continue any additional screening through them as she was not happy with the staff at [facility] who attempted the 1st biopsy Abnormal mammogram 11/22/2022 Seronegative rheumatoid arthritis (CMS/HCC) 12/16 Assessment & Plan (12/12/2023 1:46 PM [...] Refused),07/17/2022(Deferred: Patient Refused) MMR 09/23/2019 Tdap 09/23/2019 Surgical History Surgery Date Site/Laterality Comments SECTION BREAST BIOPSY 07/17/2022 - 07/16/2023 Left Medical History Medical History Date Comments Rheumatoid arthritis (HCC) Cold sore Family History Medical History Relation Name Comments Unknown Family History Father Breast cancer Maternal Grandmother Breast cancer Paternal Grandmother Relation Name Status Comments Father Maternal Grandmother Paternal Grandmother Social History Tobacco Use Types Packs/Day Years [...] on file Legal Sex Female 4:55 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 Gender Identity Female 07/23/2021 12:25 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 Sexual Orientation Straight 07/23/2021 12 :25 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 Obstetrics History Para Term AB IAB SAB Ectopic Multiple Livin g Live Births 1 1 Date Outcome GA Total Labor Labor//3rd Weight Sex Type Anes PTL Ailyn A1 A5 Name Clin Term Last Filed Vital Signs Vital Sign Reading [...] 12/12/2023 8:24 AM CDT Plan of Treatment Health Maintenance Due Date Last Done Comments Hepatitis B Screening 1999 Cervical Cancer Screening 06/23/2018 06/23/2017 Breast Cancer Screening-Mammogram 08/27/2023 08/27/2022 Covid-19 Vaccine ( season) 2024 06/03/2021, 09/29/2020, 08/19/2020 Influenza Vaccine (#1) 2024 , 04/28/2022, 05/11/2020, Additional history exists Depression Screening 12/11/2024 12/12/2023, 12/05/2022, 01/03/2022 Regular Well Visit/Exam 18-64 12/11/2024 12/12/2023, 12/05/2022, 01/03/2022 DTaP/Tdap/Td Vaccine (2 - Td or Tdap) 09/22/2029 09/23/2019 Hepatitis C Screening Completed 01/15/2024, 024 HPV Vaccines Aged Out No longer eligi ble based on patient's age to complete this topic Pneumococcal vaccine <65 Aged Out No longer eligible based on patient's age to complete this topic Varicella Vaccines Discontinued Procedures Procedure Name Priority Date/Time Associated Diagnosis Comments HEPATITIS C ANTIBODY Routine 01/15/2024 8:51 AM CDT Seronegative rheumatoid arthritis (CMS/HCC) (HCC) SCREENING MAMMOGRAM BILATERAL W JENNIFER Schedule Routine, Read Routine (OP Routine) 08/27/2022 9:39 AM OVERSIZE LOAD PILOT ESCORT Screening mammogram, encounter for from Last 3 [...] CDT Fax rsults to Dr Nghia Lucas [phone] us Nghia Lucas MD LAB MICROBIOLOGY - GENERAL ORDERABLES Final Result [facility] [id number] [address] [facility] [employer] [place] [address] * (ABNORMAL) Screening Mammogram Bilateral W Jennifer (08/27/2022 9:39 AM OVERSIZE LOAD PILOT ESCORT) Anatomical Region Laterality Modality Breast Bilateral Mammography 08/29/2022 7:45 AM OVERSIZE LOAD PILOT ESCORT Impressions 08/29/2022 7:45 AM OVERSIZE LOAD PILOT ESCORT 1. ??Indeterminate group of microcalcifications in the [...] by: JOSÉ LUIS Ambrocio 08/29/2022 7:45 AM OVERSIZE LOAD PILOT ESCORT EXAMINATION: SCREENING MAMMOGRAM BILATERAL W JENNIFER ORDERING [...] other suspicious findings identified in either breast. us Self Screening Mammogram IMG MAMMO PROCEDURES Fi nal Result from Last 3 Months or Most Recently Relevant to Health Maintenance Insurance [facility] Care Teams Special Loan Officer Relationship Specialty Start Date End Date Hilary Smith MD PCP - General Family Practice 12/29/21 Bailey Kay MD [address] [address] Referring Physician Gynecology 01/03/22 Nghia Lucas MD [address] [place] [address] Rheumatology 12/05/22
--- OUTSIDE RECORDS SUMMARY | 2024-08-13 10:38 | XMS_ITS | Encounter Summary ---
Author Organization [facility] Healthcare Address [address] [place] [address] Care Team Providers Care Waste Machine Offbearer Name Role Phone Hilary Smith MD Primary Care Provider Bailey Kay MD Unavailable Nghia Lucas MD Unavailable [phone] Encounter Details Date Type Department Care Team (Late st Contact Info) Description 12/05/2022 Telephone [facility] [address] [place] [address] Shi Ghotra, NICOLAS Social History Tobacco Use Types Packs/Day Years [...] points, staff should administer the PHQ-9) 0 12/05/2022 Comments No Sex and Gender Information Value Date Recorded Sex Assigned at Not on file 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 Gender Identity Female 07/23/2021 12:25 PM 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
== END 2024-08-13 09:55 | disposition home or self-care (01) ==
PROVIDERS: Visit Provider Obstetrics & Gynecology Gynecology
DX: Z12.31 Encounter for screening mammogram for malignant neoplasm of breast (principal)
CPT/HCPCS: 77063; 77067